=== PATIENT | female | born 1985 | race Two or more races ===

== ENCOUNTER → 2017-05-24 | Outpatient (CLI) | payer OTHER | END | disposition home or self-care (01) | LOC: PETCFH 08:04 | PROVIDERS: ATTEND Nurse Practitioner Family | DX: K82.8 Other specified diseases of gallbladder (principal) | CPT/HCPCS: 78227; A9537 ==

== ENCOUNTER → 2017-05-24 | Outpatient (CLI) | payer OTHER | END | disposition home or self-care (01) | LOC: CFH 08:14 | PROVIDERS: ATTEND Nurse Practitioner Family | DX: R10.84 Generalized abdominal pain (principal); G89.29 Other chronic pain | CPT/HCPCS: 76700 ==

== ENCOUNTER 2019-04-06 00:02 | Outpatient (CLI) | payer SELFPAY ==
[~2019-04-06] VITALS: Ht 165.1 cm; Wt 90.0 kg
[2019-04-06 00:25] VITALS: BP 114/60
== END 2019-04-06 01:27 | disposition home or self-care (01) ==
LOC: LDOP 00:02
PROVIDERS: ATTEND Advanced Practice Midwife
DX: O26.893 Other specified pregnancy related conditions, third trimester (principal); R10.2 Pelvic and perineal pain; Z3A.37 37 weeks gestation of pregnancy
CPT/HCPCS: 59025; 99211; G0463

== ENCOUNTER 2019-04-07 05:28 | Inpatient (IN) | payer OTHER ==
[~2019-04-07] VITALS: Ht 165.1 cm; Wt 86.0 kg
[2019-04-07 05:38] VITALS: BP 125/59
[2019-04-07] MEDS ORDERED: FENTANYL PF 100 MCG/2ML ONE (05:50)
[2019-04-07] MEDS ORDERED: D5%-LACTATED RINGERS 1,000 ML IV SCH (05:50)
[2019-04-07] MEDS ORDERED: OXYTOCIN 30U/ 0.9% NaCL 500ML 500 ML IV ONE (05:50)
[2019-04-07] MEDS ORDERED: FENTANYL/BUPIV./NS/PF 250 ML EPIDCONT SCH (05:52)
[2019-04-07] MEDS: LACTATED RINGERS 1,000 ML IV SCH ×2 (05:58→07:08)
[2019-04-07] MEDS ORDERED: FENTANYL PF 100 MCG/2ML IV PRN (06:00)
[2019-04-07] MEDS ORDERED: TERBUTALINE 1 MG/ML, 1ML IVPush PRN (06:00)
[2019-04-07] MEDS ORDERED: FENTANYL PF 100 MCG/2ML IVPush PRN (06:00)
[2019-04-07] MEDS ORDERED: CALCIUM CARBONATE 500 MG TAB.CHEW PO PRN (06:00)
[2019-04-07 06:14] LABS: BASOPHILS % (AUTO) 0 % (0-1); EOSINOPHILS # (AUTO) 0.19 x10^3/uL (0-0.4); EOSINOPHILS % (AUTO) 2 % (1-7); LYMPHOCYTES % (AUTO) 21 % (22-44); MD NO; MEAN CORPUSCULAR HEMOGLOBIN 28.2 pg (27.0-34.8); MEAN CORPUSCULAR HGB CONC 32.3 g/dL (32.4-35.8); MEAN CORPUSCULAR VOLUME 87.2 fL (80-100); MONOCYTES # (AUTO) 0.67 x10^3/uL (0.2-0.8); MONOCYTES % (AUTO) 6 % (2-9); NEUTROPHILS # (AUTO) 8.17 x10^3/uL (1.8-6.8); NEUTROPHILS % (AUTO) 71 % (42-75); PLATELET COUNT 212 x10^3/uL (130-400); RED BLOOD COUNT 4.52 x10^6/uL (3.82-5.3); RED CELL DISTRIBUTION WIDTH 13.3 % (9.6-15.2)
[2019-04-07] MEDS ORDERED: OXYTOCIN 30U/ 0.9% NaCL 500ML 500 ML ONE ×2 (06:23→07:15)
[2019-04-07] MEDS ORDERED: NEWBORN KIT ONE (06:27)
[2019-04-07] MEDS: OXYTOCIN 30U/ 0.9% NaCL 500ML 500 ML IV SCH ×2 (07:18→17:18)
[2019-04-07] MEDS ORDERED: IBUPROFEN 600 MG TABLET ONE (07:27)
[2019-04-07] MEDS: IBUPROFEN 600 MG TABLET PO PRN ×3 (07:29→21:35)
[2019-04-07] MEDS ORDERED: METHYLERGONOVINE 0.2 MG/ML IM PRN (07:30)
[2019-04-07] MEDS ORDERED: OXYcodone IR 5MG TABLET PO PRN ×2 (07:30)
[2019-04-07] MEDS ORDERED: MISOPROSTOL 200 MCG TABLET PR PRN (07:30)
[2019-04-07] MEDS ORDERED: ACETAMINOPHEN 325 MG TABLET PO PRN (07:30)
[2019-04-07] MEDS ORDERED: CARBOPROST TROMETHAMINE 250 MCG/ML, 1ML IM PRN (07:30)
[2019-04-07] MEDS ORDERED: ONDANSETRON 2MG/ML, 2ML IV PRN (07:30)
[2019-04-07 08:50] VITALS: BP 113/67
[2019-04-07] MEDS: PRENATAL VIT/IRON/FA 1 EACH TABLET PO SCH (09:00)
[2019-04-07 12:30] VITALS: BP 108/69
[2019-04-07 14:47] LABS: BASOPHILS # (AUTO) 0.08 x10^3/uL (0-0.1); BASOPHILS % (AUTO) 1 % (0-1); EOSINOPHILS # (AUTO) 0.14 x10^3/uL (0-0.4); EOSINOPHILS % (AUTO) 1 % (1-7); LYMPHOCYTES # (AUTO) 1.82 x10^3/uL (1-3.4); LYMPHOCYTES % (AUTO) 14 % (22-44); MD NO; MEAN CORPUSCULAR HEMOGLOBIN 27.9 pg (27.0-34.8); MEAN CORPUSCULAR HGB CONC 32.1 g/dL (32.4-35.8); MEAN CORPUSCULAR VOLUME 86.8 fL (80-100); MEAN PLATELET VOLUME 8.9 fL (7.4-10.4); MONOCYTES # (AUTO) 0.88 x10^3/uL (0.2-0.8); MONOCYTES % (AUTO) 7 % (2-9); NEUTROPHILS # (AUTO) 9.73 x10^3/uL (1.8-6.8); NEUTROPHILS % (AUTO) 77 % (42-75); PLATELET COUNT 215 x10^3/uL (130-400); RED BLOOD COUNT 4.19 x10^6/uL (3.82-5.3); RED CELL DISTRIBUTION WIDTH 13.3 % (9.6-15.2)
[2019-04-07 16:10] VITALS: BP 102/65
[2019-04-07 19:50] VITALS: BP 111/72
[2019-04-07] MEDS: DOCUSATE 100 MG CAPSULE PO PRN (21:36)
[2019-04-08 00:30] VITALS: BP 104/64
[2019-04-08] MEDS: OXYTOCIN 30U/ 0.9% NaCL 500ML 500 ML IV SCH (03:18)
[2019-04-08] MEDS: IBUPROFEN 600 MG TABLET PO PRN (07:33)
[2019-04-08] MEDS: DOCUSATE 100 MG CAPSULE PO PRN (07:33)
[2019-04-08] MEDS: PRENATAL VIT/IRON/FA 1 EACH TABLET PO SCH (07:34)
[2019-04-08 07:35] VITALS: BP 111/74
[2019-04-08] MEDS ORDERED: IBUP200T49 PO (09:42)
== END 2019-04-08 11:58 | disposition home or self-care (01) | DRG 807 ==
LOC: LDOP 05:28 → LDIP 05:46 → 2NW 08:35
PROVIDERS: ADMIT Obstetrics & Gynecology Maternal & Fetal Medicine; ATTEND Obstetrics & Gynecology Maternal & Fetal Medicine
PROC: 10E0XZZ Delivery of Products of Conception, External Approach (ICD-10-PCS; principal; 2019-04-07)
DX: O62.3 Precipitate labor (principal); Z37.0 Single live birth; O99.52 Diseases of the respiratory system complicating childbirth; J45.909 Unspecified asthma, uncomplicated; Z3A.37 37 weeks gestation of pregnancy; Z88.0 Allergy status to penicillin
CPT/HCPCS: 36415; 85025; 86850; 86900; G0378; J3010; J2590; J7120

== ENCOUNTER → 2019-12-18 | Outpatient (CLI) | payer MEDICAID ==
[~2019-12-18] MED LIST: ALBU8.5H8 INH; GADOTERATE 7.5 MMOL/15 ML SYR ONE; IBUP-1223 PO; IBUP200T49 PO; MULT-516 PO
== END | disposition home or self-care (01) ==
LOC: CFH 08:55
PROVIDERS: ATTEND Nurse Practitioner Family
DX: G43.909 Migraine, unspecified, not intractable, without status migrainosus (principal)
CPT/HCPCS: 70553; A9575

== ENCOUNTER 2020-03-21 16:52 | Emergency (ER) | payer MEDICAID ==
[~2020-03-21] VITALS: Ht 165.1 cm; Wt 99.0 kg
[~2020-03-21 16:52] MED LIST changes: -GADOTERATE 7.5 MMOL/15 ML SYR ONE
[2020-03-21 16:55] VITALS: BP 123/84
== END 2020-03-21 17:46 | disposition home or self-care (01) ==
LOC: ED 17:22
DX: J30.2 Other seasonal allergic rhinitis (principal)
CPT/HCPCS: 99283

== ENCOUNTER 2020-08-08 03:55 | Emergency (ER) | payer MEDICAID ==
[~2020-08-08] VITALS: Ht 165.1 cm; Wt 85.0 kg
[2020-08-08 03:56] VITALS: BP 126/66
--- NOTE | 2020-08-08 04:02 | NUR ---
REPORT GIVEN TO JG LARIOS
[2020-08-08] MEDS ORDERED: ACETAMINOPHEN 500 MG TABLET PO ONE (04:30)
== END 2020-08-08 05:23 | disposition home or self-care (01) ==
LOC: ED 04:50
DX: S09.90XA Unspecified injury of head, initial encounter (principal); V47.5XXA Car driver injured in collision with fixed or stationary object in traffic accident, initial encounter; Y93.89 Activity, other specified; Y92.488 Other paved roadways as the place of occurrence of the external cause; Y99.8 Other external cause status
CPT/HCPCS: 99283

== ENCOUNTER 2021-05-07 05:53 | Inpatient (IN) | payer MEDICAID ==
[~2021-05-07] VITALS: Ht 165.1 cm; Wt 107.0 kg
[2021-05-07] MEDS ORDERED: TERBUTALINE 1 MG/ML, 1ML SQ PRN (06:00)
[2021-05-07] MEDS ORDERED: TERBUTALINE 1 MG/ML, 1ML IVPush PRN (06:00)
[2021-05-07] MEDS ORDERED: LACTATED RINGERS 1,000 ML IV SCH (06:00)
[2021-05-07] MEDS ORDERED: OXYTOCIN 30U/ 0.9% NaCL 500ML 500 ML IV ONE (06:00)
[2021-05-07] MEDS ORDERED: ONDANSETRON 2MG/ML, 2ML IVPush PRN (06:00)
[2021-05-07] MEDS ORDERED: FENTANYL PF 100 MCG/2ML IV PRN (06:00)
[2021-05-07] MEDS ORDERED: CALCIUM CARBONATE 500 MG TAB.CHEW PO PRN (06:00)
[2021-05-07] MEDS ORDERED: ALUMINUM/MAG/SIMETHICONE 30 ML UDC PO PRN (06:00)
[2021-05-07] MEDS ORDERED: OXYTOCIN 30U/ 0.9% NaCL 500ML 500 ML IV PRN (06:00)
[2021-05-07] MEDS ORDERED: FENTANYL PF 100 MCG/2ML IVPush PRN (06:00)
[2021-05-07] MEDS ORDERED: NEWBORN KIT ONE (06:09)
[2021-05-07 06:34] LABS: BASOPHILS % (AUTO) 1 % (0-1); EOSINOPHILS % (AUTO) 2 % (1-7); LYMPHOCYTES % (AUTO) 22 % (22-44); MEAN CORPUSCULAR HEMOGLOBIN 23.6 pg (27.0-34.8); MEAN CORPUSCULAR HGB CONC 32.8 g/dL (32.4-35.8); MEAN PLATELET VOLUME 8.7 fL (7.4-10.4); MONOCYTES % (AUTO) 9 % (2-9); NEUTROPHILS % (AUTO) 67 % (42-75); PLATELET COUNT 263 x10^3/uL (130-400); RED BLOOD COUNT 4.23 x10^6/uL (3.82-5.3); RED CELL DISTRIBUTION WIDTH 16.2 % (9.6-15.2)
[2021-05-07 07:05] VITALS: BP 118/60
[2021-05-07] MEDS ORDERED: ONDANSETRON 2MG/ML, 2ML IV PRN (13:30)
[2021-05-07] MEDS ORDERED: ACETAMINOPHEN 325 MG TABLET PO PRN (13:30)
[2021-05-07] MEDS ORDERED: MISOPROSTOL 200 MCG TABLET PR PRN (13:30)
[2021-05-07] MEDS ORDERED: CARBOPROST TROMETHAMINE 250 MCG/ML, 1ML IM PRN (13:30)
[2021-05-07] MEDS ORDERED: OXYcodone IR 5MG TABLET PO PRN (13:30)
[2021-05-07] MEDS ORDERED: METHYLERGONOVINE 0.2 MG/ML IM PRN (13:30)
[2021-05-07] MEDS ORDERED: SIMETHICONE 80 MG CHEW TAB PO PRN (13:30)
[2021-05-07] MEDS: IBUPROFEN 600 MG TABLET PO PRN ×2 (13:58→20:16)
[2021-05-07] MEDS: OXYTOCIN 30U/ 0.9% NaCL 500ML 500 ML IV SCH ×2 (14:05→23:30)
[2021-05-07 17:00] VITALS: BP 99/60
[2021-05-07 20:00] VITALS: BP 102/65
[2021-05-07] MEDS: DOCUSATE 100 MG CAPSULE PO PRN (20:15)
[2021-05-07] MEDS: FERROUS GLUCONATE 324 MG TABLET PO SCH (20:16)
[2021-05-07 21:36] LABS: BASOPHILS % (AUTO) 1 % (0-1); EOSINOPHILS % (AUTO) 1 % (1-7); LYMPHOCYTES % (AUTO) 18 % (22-44); MEAN CORPUSCULAR HEMOGLOBIN 23.2 pg (27.0-34.8); MEAN CORPUSCULAR HGB CONC 32.2 g/dL (32.4-35.8); MEAN PLATELET VOLUME 8.6 fL (7.4-10.4); MONOCYTES % (AUTO) 7 % (2-9); NEUTROPHILS % (AUTO) 73 % (42-75); PLATELET COUNT 268 x10^3/uL (130-400); RED BLOOD COUNT 4.47 x10^6/uL (3.82-5.3); RED CELL DISTRIBUTION WIDTH 16.4 % (9.6-15.2)
[2021-05-07 23:25] VITALS: BP 99/62
[2021-05-07] MEDS: OXYcodone/APAP 5/325MG TABLET PO PRN (23:26)
[2021-05-08] MEDS: IBUPROFEN 600 MG TABLET PO PRN ×3 (02:03→19:57)
[2021-05-08 04:25] VITALS: BP 111/69
[2021-05-08] MEDS: OXYcodone/APAP 5/325MG TABLET PO PRN ×2 (04:27→10:50)
[2021-05-08 08:15] VITALS: BP 99/62
[2021-05-08] MEDS: DOCUSATE 100 MG CAPSULE PO PRN ×2 (08:15→19:56)
[2021-05-08] MEDS ORDERED: OXYC1TAB14 PO (08:15)
[2021-05-08] MEDS ORDERED: FERR324T23 PO (08:15)
[2021-05-08] MEDS ORDERED: IBUP-1222 PO (08:15)
[2021-05-08] MEDS ORDERED: DOCU-131 PO (08:15)
[2021-05-08] MEDS: PRENATAL VIT/IRON/FA 1 EACH TABLET PO SCH (08:15)
[2021-05-08] MEDS: OXYTOCIN 30U/ 0.9% NaCL 500ML 500 ML IV SCH ×2 (09:30→19:30)
[2021-05-08 12:30] VITALS: BP 112/74
[2021-05-08 13:31] LABS: FIO2 ROOM AIR %
[2021-05-08] MEDS ORDERED: ENOXAPARIN 100 MG/ML SQ SCH (17:00)
[2021-05-08 17:15] LABS: INTERNATIONAL NORMALIZED RATIO 0.93 (0.93-1.1)
[2021-05-08] MEDS ORDERED: OMNIPAQUE 350 MG/ML, 75ML BOTTLE ONE (18:39)
[2021-05-08] MEDS: FERROUS GLUCONATE 324 MG TABLET PO SCH (19:57)
[2021-05-08 20:00] VITALS: BP 100/63
[2021-05-09] MEDS: IBUPROFEN 600 MG TABLET PO PRN ×2 (01:53→11:41)
[2021-05-09 02:00] VITALS: BP 99/59
[2021-05-09] MEDS: OXYTOCIN 30U/ 0.9% NaCL 500ML 500 ML IV SCH (05:30)
[2021-05-09] MEDS: OXYcodone/APAP 5/325MG TABLET PO PRN (06:01)
[2021-05-09 08:15] VITALS: BP 106/69
[2021-05-09] MEDS: PRENATAL VIT/IRON/FA 1 EACH TABLET PO SCH (08:23)
[2021-05-09] MEDS: DOCUSATE 100 MG CAPSULE PO PRN (08:23)
[2021-05-09 10:38] LABS: O2 FLOW ROOM AIR L/min
== END 2021-05-09 13:55 | disposition home or self-care (01) | DRG 807 ==
LOC: LDIP 05:53 → 2NW 15:15
PROVIDERS: ADMIT Obstetrics & Gynecology Maternal & Fetal Medicine; ATTEND Obstetrics & Gynecology Maternal & Fetal Medicine
PROC: 10E0XZZ Delivery of Products of Conception, External Approach (ICD-10-PCS; principal; 2021-05-07)
PROC: 10907ZC Drainage of Amniotic Fluid, Therapeutic from Products of Conception, Via Natural or Artificial Opening (ICD-10-PCS; 2021-05-07)
DX: O99.354 Diseases of the nervous system complicating childbirth (principal); Z37.0 Single live birth; J45.909 Unspecified asthma, uncomplicated; O99.52 Diseases of the respiratory system complicating childbirth; Z3A.39 39 weeks gestation of pregnancy; G43.909 Migraine, unspecified, not intractable, without status migrainosus; Z88.0 Allergy status to penicillin; Z20.822 Contact with and (suspected) exposure to COVID-19
CPT/HCPCS: 36415; 36600; 71046; 71275; 82803; 85025; 85384; 85598; 85610; 85613; 85670; 85730; 85732; 86146; 86147; 86592; 86850; 86900; 87635; 93005; G0378; J1650; J3010; Q9967; J2590; J7120